=== PATIENT | male | born 1965 | race Caucasian/White ===

== ENCOUNTER 2022-12-17 10:23 | Day surgery (SDC) | payer MEDICAID ==
[~2022-12-17] VITALS: Ht 165.1 cm; Wt 91.8 kg
[~2022-12-17 10:23] MED LIST: SODIUM CHLORIDE 0.9% 1,000 ML ONE
[2022-12-17] MEDS ORDERED: LIDOCAINE/PF 2% 5 ML VIAL IM ONE (10:24)
[2022-12-17] MEDS ORDERED: PROPOFOL 1% ISO-OSM 1000 MG/100 ML BOTTLE IV ONE (10:24)
[2022-12-17] MEDS ORDERED: ENAL-89 PO (10:29)
[2022-12-17] MEDS ORDERED: METF-446 PO (10:29)
[2022-12-17] MEDS ORDERED: OMEP20CA12 PO (10:29)
[2022-12-17] MEDS ORDERED: CANA100T PO (10:29)
[2022-12-17] MEDS ORDERED: ATOR20TA65 PO (10:29)
[2022-12-17] MEDS ORDERED: INSU100I66 SQ (10:38)
[2022-12-17] MEDS ORDERED: SODIUM CHLORIDE 0.9% 1,000 ML IV ONE (11:00)
[2022-12-17 11:26] LABS: GLUCOMETER DEV NAME(LOC) SDS.; GLUCOSE,POINT OF CARE 183 MG/DL (70-110)
== END 2022-12-17 14:20 | disposition home or self-care (01) ==
LOC: SURGERY 10:23
PROVIDERS: ATTEND Internal Medicine Gastroenterology
DX: R19.7 Diarrhea, unspecified (principal); K44.9 Diaphragmatic hernia without obstruction or gangrene; K29.70 Gastritis, unspecified, without bleeding; E11.9 Type 2 diabetes mellitus without complications; K20.90 Esophagitis, unspecified without bleeding; I10 Essential (primary) hypertension; Z87.442 Personal history of urinary calculi; E78.00 Pure hypercholesterolemia, unspecified; Z79.899 Other long term (current) drug therapy; Z79.4 Long term (current) use of insulin; Z98.890 Other specified postprocedural states
CPT/HCPCS: 45380; 43239; 82962; C1769; J3490; J2704; J7030; 88305; 88312; 88313